=== PATIENT | male | born 1965 | race American Indian/Alaskan Native ===

== ENCOUNTER 2021-11-29 12:54 | Emergency (ER) | payer SELFPAY ==
[2021-11-29 13:20] VITALS: BP 141/99
== END 2021-11-29 20:17 | disposition left against medical advice (07) ==
LOC: ED 12:54
DX: S61.411A Laceration without foreign body of right hand, initial encounter (principal); Z53.21 Procedure and treatment not carried out due to patient leaving prior to being seen by health care provider; X58.XXXA Exposure to other specified factors, initial encounter; Y93.89 Activity, other specified; Y92.89 Other specified places as the place of occurrence of the external cause; Y99.8 Other external cause status